=== PATIENT | male | born 2000 | race Caucasian/White ===

== ENCOUNTER 2023-12-08 22:16 | Emergency (ER) | payer OTHER, MEDICAID, SELFPAY ==
--- NOTE | ~2023-12-08 | XR_ITS ---
EXAMINATION: XR hand RT min 3V DATE: 12/08/2023 22:42 INDICATION: Right hand injury and pain. TECHNIQUE: 3 views of right hand were obtained. COMPARISON: None. FINDINGS: There is a comminuted intra-articular fracture of base of fifth middle phalanx. The main di stal fracture fragment demonstrates 4 mm posterior displacement and shortening. Joint spaces are norm al. IMPRESSION: 1. Comminuted intra-articular fracture of base of fifth middle phalanx. Reviewed, dictated and finalized at location E.
--- NOTE | ~2023-12-08 | XR_ITS ---
EXAMINATION: XR finger 5th RT min 2V DATE: 12/09/2023 02:46 INDICATION: Postreduction right fifth digit fracture dislocation TECHNIQUE: Dorsal palmar, lateral and oblique views of the right fifth digit were obtained COMPARISON: None FINDINGS: Minimal change in a comminuted intra-articular fracture at the base of the fifth proximal phalanx wit h no significant change in approximately 4 mm palmar displacement of the main distal fragment and the second largest fragment comprising the mid and palmar aspect of the proximal articular surface which is also rotated volarly relative to the axis of the proximal and middle phalangeal diaphysis. A smal l fragment comprising the dorsal third of the proximal articular surface remains positioned along the dorsal margin of the head of the middle phalanx. No new fractures identified. Alignment and joint sp aces are normal throughout the remainder of the visualized right hand. IMPRESSION: 1. No significant change in a fracture dislocation at the base of the right fifth middle phalanx with persistent palmar subluxation of the 2 main fragments. Reviewed, dictated and finalized at location A. IMPRESSION: 1. No significant change in a fracture dislocation at the base of the right fif th middle phalanx with persistent palmar subluxation of the 2 main fragments.
[2023-12-08 22:18] VITALS: BP 131/84; PULSE 86; RESP 16; TEMP 36.4; O2SAT 99
[2023-12-09] MEDS: HYDROcodone/acetaminophen (*CRX) 5-325 MG TABLET 1 TAB PO (01:09)
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
== END 2023-12-09 01:59 | disposition home or self-care (01) ==
PROVIDERS: Emergency Provider Physician Assistant; PCP Pediatrics
DX: S62.626A Displaced fracture of middle phalanx of right little finger, initial encounter for closed fracture (principal); W05.1XXA Fall from non-moving nonmotorized scooter, initial encounter
CPT/HCPCS: 29130; 73130; 73140; 99284; A9270

== ENCOUNTER 2023-12-28 08:50 | Day surgery (SDC) | payer OTHER, MEDICAID, SELFPAY ==
--- NOTE | 2023-12-27 10:16 | P.PNAN_ITS ---
Anes - Initial Pre Proc Eval Procedure: Operation Date: 12/28/23 11:30 Proposed Procedures p Closed Reduction Percutaneous Pinning Right Small Finger, Possible Open Reduction Internal Fixation - Vince Cotto MD Date/Time: 12/27/23 10:16 Surgeon: Vince Cotto MD Pre Op Diagnosis: Fracture Dislocation of Finger Patient Data Age: 23 Gender: M Height: 1.75 m Weight: 70.307 kg Allergies Allergy/AdvReac Type Severity Reaction Status Date / Time No Known Allergies Allergy Verified 12/28/23 10:10 Home Medications Medication Instructions Recorded Confirmed Type hydrocodone 5 mg-acetaminophen 325 1 tablet PO Q6H PRN pain #20 tabs 12/09/23 12/27/23 Rx mg tablet cephalexin 500 mg capsule 500 mg PO Q8H #21 caps 12/28/23 Rx Patient hx anesthesia problems: none Family hx anesthesia problems: none Results Review: All pre-operative results and documents have been reviewed as part of the pre- operative evaluation. [facility] Past Medical History Medical History No active medical problems Social History Social History Smoking status: Never smoker Second hand tobacco smoke exposure: No Alcohol intake: never Substance use: never Substance use type: does not use Living arrangements: alone Spiritual care concerns: No Anes - Eval Final PreProcedure Day of Procedure 12/27/23 10:16 Patient weight: normal Results Review: All pre-operative results and documents have been reviewed as part of the pre- operative evaluation. Informed Consent: The patient's anesthetic plan and its attendant risks and benefits were discussed with the patient/family/POA. Questions were solicited and answers provided to the satisfaction of the patient/family/POA.
[2023-12-27 13:11] VITALS: BMI 22.8
--- NOTE | ~2023-12-28 | XR_ITS ---
EXAMINATION: XR surgery orthopedic DATE: 12/28/2023 12:00 INDICATION: Closed reduction of the right fifth finger fracture TECHNIQUE: 3 fluoroscopic images of the right fifth digit were obtained during procedure performed by Dr. Cotto. Radiologist was not present for the imaging or procedure. The amount of fluoroscopy time used during this procedure was 0.9 minutes. COMPARISON: 12/09/2023 FINDINGS: Interval reduction with significant improvement in alignment of the comminuted fracture at the base o f the right fifth middle phalanx. The fracture is fixed with 3 percutaneous pins 2 of which extend in to the head of the proximal phalanx. The palmar subluxation of the middle phalanx with respect to the proximal phalanx is also significantly reduced. IMPRESSION: 1. Fluoroscopy utilized during reduction and percutaneous pin fixation of a comminuted intra-articula r fracture at the base of the right fifth middle phalanx. See procedure note for further detail. Reviewed, dictated and finalized at location A. IMPRESSION: 1. Fluoroscopy utilized during reduction and percutaneous pin fixation of a com minuted intra-articular fracture at the base of the right fifth middle phalanx. See procedure note for further detail.
--- NOTE | 2023-12-28 07:03 | P.OP_ITS ---
Procedure Note - Detailed Date of Procedure 12/28/23 Pre-op Diagnosis Fracture Dislocation of right small finger PIPJ Post-op Diagnosis Same Procedure Performed right small finger middle phalanx fracture orif Surgeon Vince Cotto MD Document Control Supervisor paz eubanks pa-c Anesthesia MAC Description of Procedure INFORMED CONSENT: The patient was seen and examined and marked in the pre-op area.? The patient signed the consent form. PROCEDURE IN DETAIL:The patient taken back to OR on the stretcher in supine position. Time out performed with anesthesia, surgeon and staff agreeing on patient's name site and surgery to be performed SCDs were placed on the lower extremities and inflated. A tourniquet was placed on {right} upper extremity and antibiotics given IV After anesthesia administered sedation I injected {5}cc 1%lido and 0.5% marcaine plain for digital block in the palm The?{right upper extremity}?was prepped and draped in sterile fashion the??{right upper extremity} was? exsanguinated with Esmarch bandage and tourniquet inflated to 250mmHg Mini c-arm was draped and brought into the field. With multiple attempts at recution maneuvers I was able to reduce the volar aspect of the middle phalanx with reasonable joint surface articular. This was pinned with two crossing 0.045 k-wires in retrograde fashion and necessitate having the pipjoint slightly flexed to maintain this reduction. It was felt that making an incision and performing volar plate release to allow for full PIPJoint extension would like have yielded more scar tissue and post-op stiffness than percutaneous fixation. k-wire placement was verified with multiple views of fluoroscopy. I place a 0.035 k-wire into the dorsal fragment securing it to the middle phalanx as well. There appeared to be reasonable reduction of the joint though there was still a visible articular depression on the middle phalanx but opening was unlikely to improve this reduction. The k-wires were shortened and covered with betadine soaked alcohol swabs. A dressing of 4x4, charu, and an ulnar gutter splint was applied for patient safety, security, and comfort and secured with an sergo bandage after the tourniquet was let down noting the hand was warm and well perfused. The patient was then awaken from anesthesia and transferred to the recovery room in stable condition.? Complications - none EBL- 0cc Disposition - home in stable conditions paz eubanks pa-c was essential for positioning, retraction, instrumentation, fluoro utilization, closure and dressing placement [facility] Billing Surgery - Charge Forward: Surgery Billing ([id number] and [id number], for paz)
--- NOTE | 2023-12-28 07:03 | WPDHPUPDATE1 ---
History and Physical Update Update Date/Time: 12/28/23 07:03 Patient seen and examined in pre-operative holding area. No interval change in medical history or symptoms. Patient recalls previous discussion of benefits and alternatives to procedure. Continues to desire to proceed with right small finger middle phalanx closed possible open reduction and pinning. Reviewed procedure, post-op expectations and risks including but not limited to bleeding, infection, injury to tendon/nerve/vessel, decreased hand function, stiffness, RSD, no change or worsening of symptoms, malunion, nonunion. I discussed the possible use of assistants and their participation in the case. Patient stated understanding and signed the consent form wishing to proceed. 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
[2023-12-28 10:12] VITALS: BP 122/73; PULSE 81; RESP 15; TEMP 37.3; O2SAT 100
[2023-12-28] MEDS: LACTATED RINGERS 1,000 ML 30 ML IV CONT (10:21)
--- NOTE | 2023-12-28 10:33 | P.PNAN_ITS ---
Anes - Eval Final PreProcedure Day of Procedure 12/28/23 10:33 Patient weight: normal Heart: regular rate and rhythm Lungs: clear to auscultation Airway: Mallampati scale class 1 Neurological: alert and oriented Last oral intake: >/= 8 hours ASA classification: I Emergent: no Anesthetic plan: proceed Anesthesia type and monitoring: general GIVS and standard monitoring Results Review: All pre-operative results and documents have been reviewed as part of the pre- operative evaluation. Informed Consent: The patient's anesthetic plan and its attendant risks and benefits were discussed with the patient/family/POA. Questions were solicited and answers provided to the satisfaction of the patient/family/POA.
[2023-12-28] MEDS: ceFAZolin SODIUM 2 GM/20 ML SW SYRINGE IV PUSH (11:09)
[2023-12-28] MEDS: LIDOCAINE HCL 1% LOCAL INJ 20 ML VIAL INFILTRATE (11:50)
[2023-12-28 11:54] VITALS: BP 107/58; PULSE 73; RESP 15; O2SAT 98
--- NOTE | 2023-12-28 11:57 | WPDANESPN ---
Anes - Prog Note Post-Op Date/Time: 12/28/23 11:57 Cardiovascular status: normal Respiratory status: normal Airway patency: baseline Mental status: baseline Post-Op hydration status: normal Vital Signs: Last Vital Signs Temp 37.3 C 12/28/23 10:12 Pulse 73 12/28/23 11:54 Resp 15 12/28/23 11:54 BP 107/58 L 12/28/23 11:54 Pulse Ox 98 12/28/23 11:54 O2 Del Method Room Air 12/28/23 11:54 Pain Score (VAS): 0/10 Patient Feedback: Patient satisfied with anesthetic care.
[2023-12-28 12:10] VITALS: BP 108/65; PULSE 69; RESP 15; O2SAT 99
[2023-12-28 12:37] VITALS: BP 105/62; PULSE 57; RESP 14; O2SAT 100
== END 2023-12-28 08:51 | disposition home or self-care (01) ==
PROVIDERS: PCP Pediatrics; Visit Provider Plastic Surgery
PROC: (CPT 26746; principal; 2023-12-28 11:30)
DX: S62.626A Displaced fracture of middle phalanx of right little finger, initial encounter for closed fracture (principal)
CPT/HCPCS: 26746; 99199

== ENCOUNTER 2024-01-09 14:42 | Outpatient (CLI) | payer OTHER, MEDICAID, SELFPAY ==
--- NOTE | ~2024-01-09 | XR_ITS ---
EXAM: XR hand RT min 3V DATE: 01/09/2024 15:02 HISTORY: S62.609A - Fracture of unspecified phalanx of unspecified... . COMPARISON: 12/09/2023; x-ray fluoroscopy 12/28/2023. FINDINGS: 3 pins fix a comminuted intra-articular fracture of the proximal aspect of the right fifth middle phalange into near-anatomic alignment. 2 pins cross and fixed the fifth PIP joint. No hardware fracture or perihilar hardware lucency. An oblique fracture fragment along the posterior medial aspe ct of the proximal phalange appears to be unfixed. IMPRESSION: Status post pin fixation of the comminuted intra-articular fracture of the proximal aspec t of the right fifth middle phalange and the fifth PIP joint. Reviewed, dictated and finalized at location K. IMPRESSION: Status post pin fixation of the comminuted intra-articular fracture of the proximal aspect of the right fifth middle phalange and the fifth PIP hilda int.
== END 2024-01-09 14:43 | disposition home or self-care (01) ==
LOC: ANHIMG 14:48
PROVIDERS: PCP Pediatrics; Visit Provider Physician Assistant Surgical
DX: S62.626D Displaced fracture of middle phalanx of right little finger, subsequent encounter for fracture with routine healing (principal); X58.XXXD Exposure to other specified factors, subsequent encounter
CPT/HCPCS: 73130

== ENCOUNTER 2024-01-22 16:23 | Outpatient (CLI) | payer MEDICAID, SELFPAY ==
--- NOTE | ~2024-01-22 | XR_ITS ---
EXAMINATION: XR hand RT min 3V DATE: 01/22/2024 16:42 INDICATION: Fracture of unspecified phalanx of unspecified hand. TECHNIQUE: 3 views of right hand were obtained. COMPARISON: Right hand radiographs 01/09/2024 FINDINGS: There is a comminuted fracture of base of fifth middle phalanx. The main distal fracture fr agment demonstrates near-anatomic alignment. Fixation is seen with 3 pins involving the fifth middle phalanx and proximal phalanx. Cast material obscures fine bone detail. IMPRESSION: 1. Comminuted fracture of fifth middle phalanx with pin fixation. Reviewed, dictated and finalized at location A.
--- NOTE | ~2024-01-22 | XR_ITS ---
EXAMINATION: XR finger 5th RT min 2V DATE: 01/22/2024 16:42 INDICATION: Fracture of unspecified phalanx of unspecified hand. TECHNIQUE: 3 views of right hand fifth digit were obtained. COMPARISON: Right hand radiographs 01/09/2024, 12/08/2023 FINDINGS: There is a comminuted fracture of base of fifth middle phalanx. The main distal fracture fr agment demonstrates near-anatomic alignment. Fixation is seen with 3 pins in the fifth middle phalanx and proximal phalanx. Cast material obscures fine bone detail. IMPRESSION: 1. Comminuted fracture of base of fifth middle phalanx with pin fixation. Reviewed, dictated and finalized at location A.
== END 2024-01-22 16:24 | disposition home or self-care (01) ==
LOC: ANHIMG 16:27
PROVIDERS: PCP Pediatrics; Visit Provider Plastic Surgery
DX: S62.626D Displaced fracture of middle phalanx of right little finger, subsequent encounter for fracture with routine healing (principal); X58.XXXD Exposure to other specified factors, subsequent encounter
CPT/HCPCS: 73130; 73140

== ENCOUNTER 2024-01-22 17:21 | Outpatient (CLI) | payer MEDICAID, SELFPAY ==
--- NOTE | ~2024-01-22 | XR_ITS ---
EXAMINATION: XR finger 5th RT min 2V DATE: 01/22/2024 17:38 INDICATION: Fracture of unspecified phalanx of unspecified hand. TECHNIQUE: 3 views of right hand fourth digit were obtained. COMPARISON: Right hand fourth digit radiographs 01/22/2024 FINDINGS: There is a comminuted fracture of base of fifth middle phalanx. A fracture fragment at the dorsal base of the fifth middle phalanx demonstrates 3 mm dorsal displacement. Other joint spaces are normal. IMPRESSION: 1. Comminuted intra-articular fracture of base of fifth middle phalanx. Reviewed, dictated and finalized at location A.
== END 2024-01-22 17:22 | disposition home or self-care (01) ==
LOC: ANHIMG 17:22
PROVIDERS: PCP Pediatrics; Visit Provider Physician Assistant Surgical
DX: S62.626D Displaced fracture of middle phalanx of right little finger, subsequent encounter for fracture with routine healing (principal); X58.XXXD Exposure to other specified factors, subsequent encounter
CPT/HCPCS: 73140

== ENCOUNTER 2024-02-05 15:54 | Outpatient (CLI) | payer MEDICAID, SELFPAY ==
--- NOTE | ~2024-02-05 | XR_ITS ---
XR finger 5th RT min 2V Ordering provider: Katy Vasques PA-C History: . Fracture of unspecified phalanx of unspecified... . Comparison: 01/22/2024 FINDINGS: BONES: Anterior subluxation at the proximal interphalangeal joint of the fifth finger unchanged from previous examination with severe narrowing of the joint space. Fracture in the area cannot be exclude d. Infection cannot be excluded. Clinical correlation advised. SOFT TISSUES: Soft tissue swelling seen in the area of the proximal interphalangeal joint. IMPRESSION: No change from previous examination. Reviewed, dictated and finalized at location A.
== END 2024-02-05 15:55 | disposition home or self-care (01) ==
LOC: ANHIMG 15:56
PROVIDERS: PCP Pediatrics; Visit Provider Physician Assistant Surgical
DX: S62.609A Fracture of unspecified phalanx of unspecified finger, initial encounter for closed fracture (principal); X58.XXXA Exposure to other specified factors, initial encounter
CPT/HCPCS: 73140